=== PATIENT | male | born 1980 | race Two or more races ===

== ENCOUNTER 2021-01-12 10:33 | Emergency (ER) | payer MEDICAID ==
[~2021-01-12] VITALS: Ht 170.2 cm; Wt 90.7 kg
[~2021-01-12 10:33] MED LIST: LEVO-28 PO; METR500T PO
[2021-01-12 10:48] VITALS: BP 125/73
[2021-01-12] MEDS ORDERED: traMADol HCL 50 MG TAB PO ONE (12:45)
== END 2021-01-12 13:15 | disposition home or self-care (01) ==
LOC: ER 10:33
DX: S43.102A Unspecified dislocation of left acromioclavicular joint, initial encounter (principal); Z79.899 Other long term (current) drug therapy; V86.56XA Driver of dirt bike or motor/cross bike injured in nontraffic accident, initial encounter; Y93.I9 Activity, other involving external motion; Y92.89 Other specified places as the place of occurrence of the external cause; Y99.8 Other external cause status
CPT/HCPCS: 73000; 73030

== ENCOUNTER 2022-02-09 13:03 | Emergency (ER) | payer MEDICAID ==
[~2022-02-09] VITALS: Ht 172.7 cm; Wt 90.7 kg
[2022-02-09 14:35] LABS: Calcium 9.2 mg/dL (8.5-10.1); Potassium 4.2 mmol/L (3.5-5.1)
[2022-02-09 14:39] LABS: BUN/Creatinine Ratio 8.8; Bilirubin, Total 0.9 mg/dL (0.2-1.0); Total Protein 8.4 g/dL (6.4-8.2)
[2022-02-09 14:44] LABS: Basophils # (auto) 0.1 10 ^3/uL (0-0.2); Basophils % (auto) 1.3 % (0.0-2.0); Eosinophils # (auto) 0.1 10 ^3/uL (0-0.8); Hemoglobin 16.6 g/dL (13.5-17.5); Lymphocytes # (auto) 0.8 10 ^3/uL (0.4-5.4); Lymphocytes % (auto) 8.5 % (10.0-50.0); Mean Corpuscular Hemoglobin 33.6 pg (28.0-32.0); Mean Corpuscular Hgb Conc. 35.2 g/dL (32.0-36.0); Mean Corpuscular Volume 95.4 fL (80.0-100.0); Monocytes # (auto) 0.5 10 ^3/uL (0-1.3); Neutrophils # (auto) 8.2 10 ^3/uL (1.6-8.6); Neutrophils % (auto) 84.2 % (37.0-80.0); Red Blood Cells 4.93 10^6/uL (4.5-5.90); Red Cell Distribution Width 13.5 % (11.8-14.3); White Blood Cell 9.8 10^3/uL (4.4-10.8)
[2022-02-09] MEDS ORDERED: ONDANSETRON ODT 4 MG TAB PO ONE (17:30)
[2022-02-09] MEDS ORDERED: metroNIDAZOLE 500 MG TAB PO ONE (17:30)
[2022-02-09] MEDS ORDERED: HYDROcodone-ACET 5/325MG TAB PO ONE (17:30)
[2022-02-09] MEDS ORDERED: CIPROFLOXACIN HCL 500 MG TAB PO ONE (17:30)
[2022-02-09] MEDS ORDERED: HYDR-4902 PO ×2 (17:34→17:41)
[2022-02-09] MEDS ORDERED: METR500T PO ×2 (17:34→17:41)
[2022-02-09] MEDS ORDERED: CIPR-173 PO ×2 (17:34→17:41)
[2022-02-09] MEDS ORDERED: ONDA-144 PO ×2 (17:34→17:41)
[2022-02-09 19:33] VITALS: BP 122/82
== END 2022-02-09 19:33 | disposition home or self-care (01) ==
LOC: ER 13:03
DX: K57.32 Diverticulitis of large intestine without perforation or abscess without bleeding (principal); Z79.2 Long term (current) use of antibiotics; Z79.899 Other long term (current) drug therapy
CPT/HCPCS: 36415; 74176; 80053; 83690; 85025; 99284; Q0162